=== PATIENT | female | born 2000 | race Two or more races ===

== ENCOUNTER 2025-05-29 19:23 | Emergency (ER) | payer BC, SELFPAY ==
[2025-05-29 19:53] LABS: #Basophils 0.07 10x3/uL (0.0-0.2); #Eosinophils 0.32 10x3/uL (0.0-0.7); #Monocytes 0.41 10x3/uL (0.11-0.59); #Neutrophils 4.00 10x3/uL (1.40-6.50); %Basophils 1.0 % (0.0-1.0); %Eosinophils 4.7 % (0.0-10.0); %Lymphocytes 29.7 % (21.0-51.0); %Monocytes 6.0 % (0.0-10.0); %Neutrophils 58.5 % (42.0-75.0); Hematocrit 39.2 % (36.0-47.0); Hemoglobin 12.1 g/dL (12.0-16.0); Mean Corpuscular Hemoglobin 23.4 pg (27.0-31.0); Mean Corpuscular Volume 76.0 fL (78.0-98.0); Platelet Count 349 10x3/uL (130-400); Red Blood Cell (RBC) Count 5.16 mill/uL (4.20-5.40); White Blood Cell (WBC) Count 6.84 10x3/uL (4.8-10.8)
[2025-05-29 19:59] LABS: Cocaine Metabolite Screen Negative (Negative); THC/Cannabinoid Screen Negative (Negative); Tricyclic Screen Negative (Negative)
[2025-05-29 20:02] LABS: BHCG - Serum Negative (NEGATIVE); Pregs Control Background? CLEAR/WHITE (CLR/WHITE); Pregs Control Bar Appear? YES (CONTROL BAR)
[2025-05-29 20:06] LABS: Acetaminophen Less than 10 mcg/mL (Less than 10); Salicylate Less than 8.0 mg/dL (Less than 8.0)
[2025-05-29 20:07] LABS: ALT (SGPT) 12 U/L (Less than 34); AST (SGOT) 19 U/L (11-34); Albumin 4.4 g/dL (3.1-4.5); Alkaline Phosphatase 48 U/L (40-110); Anion Gap 13 mmol/L (10-20); BUN (Urea Nitrogen) 9 mg/dL (7.0-18.7); Bilirubin, Total 0.2 mg/dL (0.3-1.2); Calc. Creatinine Clearance 0 mL/min (70-130); Calcium 9.4 mg/dL (7.8-10.44); Carbon Dioxide 23 mmol/L (22-29); Chloride 106 mmol/L (98-107); Globulin 3.0 g/dL (2.4-3.5); Glucose 90 mg/dL (70-105); Potassium 3.6 mmol/L (3.5-5.1); Sodium 138 mmol/L (136-145)
== END 2025-05-30 05:44 | disposition home or self-care (01) ==
LOC: ERS 19:23
DX: T45.0X2A Poisoning by antiallergic and antiemetic drugs, intentional self-harm, initial encounter (principal); J45.909 Unspecified asthma, uncomplicated; F41.9 Anxiety disorder, unspecified
CPT/HCPCS: 80053; 80306; 80307; 84703; 85025; 93005